=== PATIENT | male | born 1985 | race Two or more races ===

== ENCOUNTER 2020-07-08 04:53 | Emergency (ER) | payer SELFPAY ==
[~2020-07-08] VITALS: Ht 177.8 cm; Wt 98.0 kg
[2020-07-08 05:17] VITALS: BP 138/88
== END 2020-07-08 08:27 | disposition left against medical advice (07) ==
LOC: ER 04:53
DX: R10.31 Right lower quadrant pain (principal); Z53.21 Procedure and treatment not carried out due to patient leaving prior to being seen by health care provider